=== PATIENT | female | born 2000 | race Hispanic/Latino ===

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

== ENCOUNTER 2020-02-21 02:04 | Inpatient (IN) | payer OTHER ==
[2020-02-21 02:30] LABS: #Basophils 0.1 thou/uL (0.0-0.2); #Eosinphils 0.1 thou/uL (0.0-0.7); #Lymphocytes 3.8 thou/uL (1.20-3.40); #Monocytes 0.5 thou/uL (0.11-0.59); #Neutrophils 11.2 thou/uL (1.40-6.50); %Basophils 0.5 % (0.0-1.0); %Eosinophils 0.8 % (0.0-10.0); %Lymphocytes 24.3 % (28.0-48.0); %Monocytes 3.3 % (0.0-4.0); %Neutrophils 71.2 % (31.0-61.0); Hemoglobin 13.8 g/dL (12.0-16.0); Mean Corpuscular HGB CONC 34.3 g/dL (32.0-36.0); Mean Corpuscular Hemoglobin 30.7 pg (25.0-35.0); Mean Corpuscular Volume 89.6 fL (78.0-98.0); Mean Platelet Volume 8.2 fL (7.4-10.4); Platelet Count 305 thou/uL (130-400); RBC Distribution Width 11.2 % (11.5-14.5); Red Blood Cell (RBC) Count 4.49 mill/uL (4.00-5.20); White Blood Cell (WBC) Count 15.8 thou/uL (4.8-10.8)
[2020-02-21 02:35] LABS: BHCG - Serum Negative (NEGATIVE); Pregs Control Background? CLEAR/WHITE (CLR/WHITE); Pregs Control Bar Appear? YES (CONTROL BAR)
[2020-02-21] MEDS ORDERED: Bacitracin 1 PK ONE (03:06)
[2020-02-21 03:12] LABS: CKMB 4.2 ng/mL (0-6.6)
[2020-02-21 03:19] LABS: ALT (SGPT) 248 U/L (8-55); AST (SGOT) 345 U/L (5-30); Alcohol Less than 10 mg/dL (Less than 10); Alkaline Phosphatase 55 U/L (40-100); Anion Gap 17 mmol/L (10-20); BUN (Urea Nitrogen) 6 mg/dL (8.4-21.0); Bilirubin, Total 0.6 mg/dL (0.2-1.2); Calc. Creatinine Clearance 0 mL/min (70-130); Calcium 8.6 mg/dL (7.8-10.44); Carbon Dioxide 20 mmol/L (22-29); Chloride 104 mmol/L (98-107); Estimated GFR-MDRD 77; Globulin 3.1 g/dL (2.4-3.5); Glucose 117 mg/dL (70-105); Lipase 120 U/L (8-78); Protein, Total 7.1 g/dL (6.0-8.3); Sodium 137 mmol/L (136-145)
[2020-02-21 03:27] LABS: Amphetamine Not Detected (NotDetected); Barbiturates Screen Not Detected (NotDetected); Benzodiazepine Screen Detected (NotDetected); Cocaine Metabolite Screen Not Detected (NotDetected); Medtox Control Line Valid? VALID (VALID); Medtox Reader # READER 1; Methadone Not Detected (NotDetected); Methamphetamine Not Detected (NotDetected); Opiate Screen Not Detected (NotDetected); Oxycodone Screen Not Detected (NotDetected); Phencyclidine (PCP) Not Detected (NotDetected); THC/Cannabinoid Screen Detected (NotDetected); Tricyclic Screen Not Detected (NotDetected)
[2020-02-21] MEDS ORDERED: Ondansetron PF 4 MG/2 ML Vial IVP PRN (03:59)
[2020-02-21] MEDS ORDERED: Dextrose 50% Abboject 50 ML SYRINGE SLOW IVP PRN (03:59)
[2020-02-21] MEDS ORDERED: Dextrose 5% in Water 1,000 ML IV PRN (03:59)
[2020-02-21] MEDS ORDERED: Sodium Chloride 0.9% 1,000 ML IV SCH (04:00)
[2020-02-21] MEDS ORDERED: Ibuprofen 800 MG TAB PO PRN (04:05)
[2020-02-21] MEDS ORDERED: Cyclobenzaprine 10 MG TAB PO PRN (04:05)
[2020-02-21] MEDS ORDERED: traMADol HCl 50 MG TAB PO PRN (04:05)
[2020-02-21 06:07] LABS: CK (CPK) 427 U/L (29-168); Magnesium 1.9 mg/dL (1.7-2.2); Phosphorus 4.3 mg/dL (2.3-4.7)
--- NOTE | 2020-02-21 07:55 | RAD ---
Pelvis 3 views HISTORY: Acetabular fracture. FINDINGS: Comminuted, posteriorly and laterally displaced fracture involving the posterior wall is ag ain demonstrated. A nondisplaced, oblique sagittally oriented fracture involving the base of the superior and lateral pubic rami extends into the superior medial aspect of the acetabulum. Favored to involve the inferior aspect of the posterior column. Contrast fills the urinary bladder. No evidence of leak. Sacrum partially obscured. IMPRESSION : Comminuted left acetabular fracture.
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
--- NOTE | 2020-02-21 08:35 | RAD ---
RIGHT KNEE 4 VIEWS: Date: 02/21/2020 HISTORY: Trauma. Right knee pain. FINDINGS/IMPRESSION: No acute fracture or dislocation is identified. POS: OFF
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
--- NOTE | 2020-02-21 08:37 | RAD ---
LEFT FEMUR 2 VIEWS: Date: 02/21/2020 HISTORY: Trauma. Left thigh pain. FINDINGS/IMPRESSION: The left femur is intact. There is a fracture involving the left acetabulum. POS: OFF
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
[2020-02-21] MEDS ORDERED: Iopamidol 370 76% 100 ML VIAL ONE (09:01)
[2020-02-21 11:00] LABS: Hemoglobin 13.7 g/dL (12.0-16.0); Mean Corpuscular HGB CONC 33.5 g/dL (32.0-36.0); Mean Corpuscular Volume 89.7 fL (78.0-98.0); Mean Platelet Volume 7.8 fL (7.4-10.4); Platelet Count 269 thou/uL (130-400); RBC Distribution Width 11.2 % (11.5-14.5); Red Blood Cell (RBC) Count 4.56 mill/uL (4.00-5.20)
[2020-02-21] MEDS: Senokot S 8.6-50 MG TAB PO SCH ×2 (11:22→20:47)
[2020-02-21] MEDS: Polyethylene Glycol 3350 17 GM Packet PO SCH (11:23)
[2020-02-21] MEDS: Famotidine 20 MG TAB PO SCH ×2 (11:23→20:47)
[2020-02-21] MEDS: Bacitracin 1 PK TOP SCH ×2 (11:24→20:47)
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
[2020-02-21 13:03] VITALS: BMI 30.2
[2020-02-21 13:24] LABS: CKMB 11.1 ng/mL (0-6.6)
[2020-02-21] MEDS: Sodium Chloride 0.9% 1,000 ML IV SCH (17:45)
[2020-02-21 19:12] LABS: SARS-CoV-2 MS2 Positive; SARS-CoV-2 N Gene Negative; SARS-CoV-2 S Gene Negative; SARS-CoV-2 by NAA Not Detected (NotDetected); SARS-CoV-2 orf1ab Negative
[2020-02-22] MEDS: Sodium Chloride 0.9% 1,000 ML IV SCH (04:31)
[2020-02-22 05:30] LABS: #Basophils 0.1 thou/uL (0.0-0.2); #Eosinphils 0.2 thou/uL (0.0-0.7); #Lymphocytes 2.2 thou/uL (1.20-3.40); #Monocytes 0.8 thou/uL (0.11-0.59); #Neutrophils 6.2 thou/uL (1.40-6.50); %Basophils 0.6 % (0.0-1.0); %Eosinophils 2.4 % (0.0-10.0); %Lymphocytes 23.3 % (28.0-48.0); %Monocytes 8.5 % (0.0-4.0); %Neutrophils 65.2 % (31.0-61.0); Hemoglobin 12.4 g/dL (12.0-16.0); Mean Corpuscular HGB CONC 33.1 g/dL (32.0-36.0); Mean Corpuscular Hemoglobin 29.9 pg (25.0-35.0); Mean Corpuscular Volume 90.5 fL (78.0-98.0); Mean Platelet Volume 7.7 fL (7.4-10.4); Platelet Count 224 thou/uL (130-400); RBC Distribution Width 11.2 % (11.5-14.5); Red Blood Cell (RBC) Count 4.15 mill/uL (4.00-5.20); White Blood Cell (WBC) Count 9.6 thou/uL (4.8-10.8)
[2020-02-22 05:56] LABS: Anion Gap 13 mmol/L (10-20); BUN (Urea Nitrogen) 7 mg/dL (8.4-21.0); CK (CPK) 1410 U/L (29-168); Calc. Creatinine Clearance 157 mL/min (70-130); Calcium 8.1 mg/dL (7.8-10.44); Carbon Dioxide 21 mmol/L (22-29); Chloride 108 mmol/L (98-107); Estimated GFR-MDRD Greater than 90; Glucose 97 mg/dL (70-105); Magnesium 1.8 mg/dL (1.7-2.2); Potassium 3.8 mmol/L (3.5-5.1); Sodium 138 mmol/L (136-145)
[2020-02-22 06:01] LABS: Troponin I 0.147 ng/mL (< 0.028)
[2020-02-22 06:02] LABS: Phosphorus 2.8 mg/dL (2.3-4.7)
[2020-02-22] MEDS ORDERED: traMADol HCl 50 MG TAB PO PRN (06:33)
[2020-02-22] MEDS ORDERED: Potassium Phosphate 15 MMOL in Sodium Chloride 0.9% 250 ML 250 ML IVPB SCH (07:30)
[2020-02-22] MEDS ORDERED: Magnesium 2 GM/50 ML 2 GM in Premix Bag 1 BAG IVPB SCH (07:30)
[2020-02-22] MEDS: Famotidine 20 MG TAB PO SCH ×2 (09:01→21:04)
[2020-02-22] MEDS: Senokot S 8.6-50 MG TAB PO SCH ×2 (09:01→21:04)
[2020-02-22] MEDS: Polyethylene Glycol 3350 17 GM Packet PO SCH (09:03)
[2020-02-22] MEDS: Bacitracin 1 PK TOP SCH ×2 (09:03→21:04)
[2020-02-22] MEDS: Acetaminophen 325 MG TAB PO PRN ×2 (09:08→21:04)
[2020-02-22] MEDS: Ibuprofen 200 MG TAB PO SCH ×2 (13:44→21:03)
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
[2020-02-22] MEDS ORDERED: Clindamycin/D5W 900 MG in Premix Bag 1 BAG IVPB SCH (17:15)
--- NOTE | 2020-02-23 01:41 | PRG ---
DATE OF SERVICE: 02/22/2020 SUBJECTIVE: The patient was seen during evening rounds, sleeping comfortably in no distress. The patient is n.p.o. after midnight with plans for Orthopedic surgery to repair her left acetabular fracture. The patient's vital signs are stable and she is afebrile. Urinary output is adequate for patient's weight and age. PLAN: Unchanged. Continue supportive care and pain regimen. Job ID: [id number]
[2020-02-23 05:15] LABS: #Basophils 0.1 thou/uL (0.0-0.2); #Eosinphils 0.3 thou/uL (0.0-0.7); #Lymphocytes 2.6 thou/uL (1.20-3.40); #Monocytes 0.8 thou/uL (0.11-0.59); #Neutrophils 5.5 thou/uL (1.40-6.50); %Basophils 0.7 % (0.0-1.0); %Eosinophils 3.2 % (0.0-10.0); %Lymphocytes 28.4 % (28.0-48.0); %Monocytes 8.2 % (0.0-4.0); %Neutrophils 59.5 % (31.0-61.0); Hemoglobin 11.7 g/dL (12.0-16.0); Mean Corpuscular HGB CONC 34.6 g/dL (32.0-36.0); Mean Corpuscular Hemoglobin 31.1 pg (25.0-35.0); Mean Corpuscular Volume 89.7 fL (78.0-98.0); Platelet Count 209 thou/uL (130-400); RBC Distribution Width 11.3 % (11.5-14.5); Red Blood Cell (RBC) Count 3.78 mill/uL (4.00-5.20); White Blood Cell (WBC) Count 9.2 thou/uL (4.8-10.8)
[2020-02-23 05:33] LABS: Anion Gap 14 mmol/L (10-20); BUN (Urea Nitrogen) 5 mg/dL (8.4-21.0); Calc. Creatinine Clearance 167 mL/min (70-130); Calcium 8.1 mg/dL (7.8-10.44); Carbon Dioxide 20 mmol/L (22-29); Chloride 110 mmol/L (98-107); Estimated GFR-MDRD Greater than 90; Glucose 111 mg/dL (70-105); Magnesium 1.8 mg/dL (1.7-2.2); Phosphorus 3.4 mg/dL (2.3-4.7); Potassium 3.7 mmol/L (3.5-5.1); Sodium 140 mmol/L (136-145)
[2020-02-23] MEDS: Ibuprofen 200 MG TAB PO SCH ×3 (05:46→21:33)
[2020-02-23] MEDS ORDERED: Potassium Phosphate 15 MMOL in Sodium Chloride 0.9% 250 ML 250 ML IVPB SCH (07:15)
[2020-02-23] MEDS ORDERED: Magnesium 2 GM/50 ML 2 GM in Premix Bag 1 BAG IVPB SCH (07:15)
[2020-02-23] MEDS: Famotidine 20 MG TAB PO SCH ×2 (08:31→20:21)
[2020-02-23] MEDS: Polyethylene Glycol 3350 17 GM Packet PO SCH (08:32)
[2020-02-23] MEDS: Senokot S 8.6-50 MG TAB PO SCH ×2 (08:32→20:20)
[2020-02-23] MEDS: Bacitracin 1 PK TOP SCH ×2 (08:55→20:30)
[2020-02-23] MEDS ORDERED: Dexamethasone 20 MG/5 ML VIAL ONE (09:13)
[2020-02-23] MEDS ORDERED: Lidocaine 1% PF 5 ML VIAL ONE (09:13)
[2020-02-23] MEDS ORDERED: PROPOFOL 200 MG/20 ML VIAL ONE (09:13)
[2020-02-23] MEDS ORDERED: Rocuronium Bromide 10 MG/ML (10ML VIAL) ONE (09:13)
[2020-02-23] MEDS ORDERED: Ketorolac Tromethamine 30 MG/ML VIAL ONE (09:13)
[2020-02-23] MEDS ORDERED: Metoclopramide HCl 10 MG/2 ML VIAL ONE (09:13)
[2020-02-23] MEDS ORDERED: PHENYLEPHRINE-NS 100 MCG/ML 10 ML SYRINGE ONE (09:13)
[2020-02-23] MEDS ORDERED: Ondansetron PF 4 MG/2 ML Vial ONE (09:13)
[2020-02-23] MEDS ORDERED: Famotidine/PF 20 mg/2ml Vial ONE (10:04)
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
[2020-02-23] MEDS ORDERED: Levofloxacin 500 mg/D5W 100 ml Premix Bag ONE (11:53)
[2020-02-23] MEDS ORDERED: Fentanyl 100 MCG/2 ML VIAL ONE ×2 (11:58→15:42)
[2020-02-23] MEDS ORDERED: Clindamycin/D5W 900 mg/50 ml Premix Bag ONE ×3 (12:11→13:14)
[2020-02-23] MEDS ORDERED: Midazolam HCl 2 mg/2 ml Vial ONE (12:59)
[2020-02-23] MEDS ORDERED: SUGAMMADEX SODIUM 200 MG/2 ML VIAL ONE (13:55)
[2020-02-23] MEDS ORDERED: Meperidine HCl/PF 25 MG/ML VIAL ONE (15:04)
[2020-02-23] MEDS ORDERED: Ondansetron HCl/PF 4 MG/2 ML Vial IVP PRN (15:05)
[2020-02-23] MEDS ORDERED: Promethazine HCl 25 MG/ML VIAL SLOW IVP PRN (15:05)
[2020-02-23] MEDS ORDERED: Promethazine HCl 25 MG/ML VIAL IM PRN (15:05)
[2020-02-23] MEDS: traMADol HCl 50 MG TAB PO PRN ×2 (17:47→23:40)
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
[2020-02-23] MEDS: Clindamycin/D5W 900 MG in Premix Bag 1 BAG IVPB SCH (20:20)
[2020-02-23] MEDS: Enoxaparin Sodium 40 MG/0.4 ML SYRINGE SC SCH (20:21)
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
[2020-02-24] MEDS: Clindamycin/D5W 900 MG in Premix Bag 1 BAG IVPB SCH (04:07)
[2020-02-24] MEDS: Ibuprofen 200 MG TAB PO SCH ×3 (05:24→20:32)
[2020-02-24 06:33] LABS: #Lymphocytes 1.2 thou/uL (1.20-3.40); %Basophils 0.2 % (0.0-1.0); %Eosinophils 0.1 % (0.0-10.0); %Lymphocytes 7.5 % (28.0-48.0); %Monocytes 6.2 % (0.0-4.0); %Neutrophils 85.9 % (31.0-61.0); Hemoglobin 10.8 g/dL (12.0-16.0); Mean Corpuscular HGB CONC 33.5 g/dL (32.0-36.0); Mean Corpuscular Hemoglobin 30.5 pg (25.0-35.0); Mean Corpuscular Volume 91.1 fL (78.0-98.0); Mean Platelet Volume 8.4 fL (7.4-10.4); Platelet Count 251 thou/uL (130-400); RBC Distribution Width 11.2 % (11.5-14.5); Red Blood Cell (RBC) Count 3.55 mill/uL (4.00-5.20); White Blood Cell (WBC) Count 16.3 thou/uL (4.8-10.8)
[2020-02-24 06:34] LABS: Anion Gap 12 mmol/L (10-20); BUN (Urea Nitrogen) 5 mg/dL (8.4-21.0); Calc. Creatinine Clearance 162 mL/min (70-130); Calcium 8.6 mg/dL (7.8-10.44); Carbon Dioxide 22 mmol/L (22-29); Chloride 106 mmol/L (98-107); Estimated GFR-MDRD Greater than 90; Glucose 132 mg/dL (70-105); Magnesium 1.7 mg/dL (1.7-2.2); Phosphorus 3.9 mg/dL (2.3-4.7); Potassium 4.1 mmol/L (3.5-5.1); Sodium 136 mmol/L (136-145)
[2020-02-24] MEDS: Senokot S 8.6-50 MG TAB PO SCH ×2 (08:32→20:33)
[2020-02-24] MEDS: Famotidine 20 MG TAB PO SCH (08:32)
[2020-02-24] MEDS: Polyethylene Glycol 3350 17 GM Packet PO SCH (08:32)
[2020-02-24] MEDS: Bacitracin 1 PK TOP SCH ×2 (08:33→20:32)
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
--- NOTE | 2020-02-24 12:38 | OP ---
DATE OF PROCEDURE: 02/23/2020 Dictated by Margarito Singh PA-C, as a scribe for Juan Menard MD. ADDENDUM: PREOPERATIVE DIAGNOSES: Left knee deep lateral laceration with mild undermining pericapsular region and left hip acetabular fracture. POSTOPERATIVE DIAGNOSES: Left knee deep lateral laceration with mild undermining pericapsular region and left hip acetabular fracture. PROCEDURES PERFORMED: 1. Irrigation and debridement, primary washout, and closure of left knee laceration. 2. Irrigant arthrogram clinically insignificant performed at the bedside. SURGEON: Juan Menard MD WATCH AND CLOCK MAKER AND REPAIRER: Margarito Singh PA-C ANESTHESIA: General via endotracheal tube. DESCRIPTION OF PROCEDURE: Lizbeth is a 19-year-old female who underwent a left hip acetabular open reduction and internal fixation and prior to termination of procedure, the patient was found to have a left knee laceration which got past the subcutaneous layer and down in the pericapsular region of the left lateral knee After identification of the laceration, 500 mL of a sterile saline was irrigated through the region. It was inspected with blunt, digital probing, and found to be next to the capsule. Therefore, a sterile irrigant was injected into the knee capsule, 60 mL in all, and 60 mL was retrieved after providing hydrostatic pressure, but without any exsanguination or leakage of fluid into the laceration. Comfortable that this was an extracapsular defect, I then irrigated the wound copiously and placed three 2-0 nylon stitches for primary closure. Sterile dressing was applied. The procedure was terminated without any complication. Job ID: [id number]
[2020-02-24] MEDS: traMADol HCl 50 MG TAB PO PRN (14:59)
[2020-02-24] MEDS: Enoxaparin Sodium 40 MG/0.4 ML SYRINGE SC SCH (20:33)
[2020-02-25 05:31] LABS: #Basophils 0.1 thou/uL (0.0-0.2); #Eosinphils 0.1 thou/uL (0.0-0.7); #Lymphocytes 3.5 thou/uL (1.20-3.40); #Monocytes 0.7 thou/uL (0.11-0.59); #Neutrophils 4.9 thou/uL (1.40-6.50); %Basophils 0.6 % (0.0-1.0); %Eosinophils 1.3 % (0.0-10.0); %Lymphocytes 37.3 % (28.0-48.0); %Neutrophils 52.8 % (31.0-61.0); Hemoglobin 10.3 g/dL (12.0-16.0); Mean Corpuscular HGB CONC 34.3 g/dL (32.0-36.0); Mean Corpuscular Hemoglobin 31.1 pg (25.0-35.0); Mean Corpuscular Volume 90.9 fL (78.0-98.0); Mean Platelet Volume 7.4 fL (7.4-10.4); Platelet Count 260 thou/uL (130-400); RBC Distribution Width 11.3 % (11.5-14.5); White Blood Cell (WBC) Count 9.3 thou/uL (4.8-10.8)
[2020-02-25] MEDS: Ibuprofen 200 MG TAB PO SCH ×2 (05:35→15:13)
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
[2020-02-25] MEDS ORDERED: Magnesium 2 GM/50 ML 2 GM in Premix Bag 1 BAG IVPB SCH (08:15)
[2020-02-25] MEDS: Bacitracin 1 PK TOP SCH (08:50)
[2020-02-25] MEDS: Acetaminophen 325 MG TAB PO SCH ×2 (08:50→15:13)
[2020-02-25] MEDS: Senokot S 8.6-50 MG TAB PO SCH (08:54)
[2020-02-25] MEDS: Polyethylene Glycol 3350 17 GM Packet PO SCH (08:55)
[2020-02-25 12:25] VITALS: BP 109/74; TEMP 98.4
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
== END 2020-02-25 17:37 | disposition home or self-care (01) | DRG 959 ==
LOC: ERS 02:04 → ERHOLD 04:03 → SURG A 10:07
PROVIDERS: ADMIT Surgery; ATTEND Surgery
PROC: 0QS504Z Reposition Left Acetabulum with Internal Fixation Device, Open Approach (ICD-10-PCS; principal; 2020-02-23)
PROC: 0YQGXZZ Repair Left Knee Region, External Approach (ICD-10-PCS; 2020-02-23)
PROC: 0J9P0ZZ Drainage of Left Lower Leg Subcutaneous Tissue and Fascia, Open Approach (ICD-10-PCS; 2020-02-23)
DX: S32.422A Displaced fracture of posterior wall of left acetabulum, initial encounter for closed fracture (principal); S36.116A Major laceration of liver, initial encounter; Z20.828 Contact with and (suspected) exposure to other viral communicable diseases; V89.2XXA Person injured in unspecified motor-vehicle accident, traffic, initial encounter; R40.2132 Coma scale, eyes open, to sound, at arrival to emergency department; R40.2242 Coma scale, best verbal response, confused conversation, at arrival to emergency department; R40.2362 Coma scale, best motor response, obeys commands, at arrival to emergency department; S20.02XA Contusion of left breast, initial encounter; S80.212A Abrasion, left knee, initial encounter; S80.211A Abrasion, right knee, initial encounter; S40.812A Abrasion of left upper arm, initial encounter; S81.012A Laceration without foreign body, left knee, initial encounter; F12.10 Cannabis abuse, uncomplicated; F13.10 Sedative, hypnotic or anxiolytic abuse, uncomplicated; Z88.0 Allergy status to penicillin
CPT/HCPCS: 36415; 51702; 70450; 71260; 72125; 72190; 74177; 76000; 76377; 80048; 80053; 80306; 80307; 82550; 82553; 83605; 83690; 83735; 84100; 84484; 84703; 85025; 87635; 93005; 93306; 96360; C1713; G0390; J1100; J1650; J1885; J1956; J2175; J2250; J2405; J2704; J2765; J3010; J3475; J3490; J7050; Q9967; S0028; U0003

== ENCOUNTER 2024-05-12 09:35 | Emergency (ER) | payer OTHER, SELFPAY ==
[2024-05-12] MEDS ORDERED: Acetaminophen 500 MG TAB ONE (09:43)
== END 2024-05-12 10:53 | disposition home or self-care (01) ==
LOC: ERS 09:35
DX: J10.1 Influenza due to other identified influenza virus with other respiratory manifestations (principal)
CPT/HCPCS: 87428; 99284